=== PATIENT | female | born 1995 | race American Indian/Alaskan Native ===

== ENCOUNTER 2021-06-20 00:32 | Inpatient (IN) | payer SELFPAY ==
[2021-06-20 01:52] LABS: Bacteria,Urine 1+ /HPF (Negative); Bilirubin,Urine NEG (Negative); Blood,Urine SM (Negative); Color,Urine Straw (Yellow); Mucus,Urine FEW /HPF; Protein,Urine <15 mg/dL mg/dL (Negative); Urobilinogen,Urine < 2.0 mg/dL (<2.0)
[2021-06-20 02:07] LABS: Basophils % (Auto) 0.1 % (0.0-1.8); Hematocrit 45.3 % (30.3-42.9); Hemoglobin 14.4 gm/dl (10.1-14.3); Lymphocytes # (Auto) 0.8 K/mm3 (1.2-5.4); Lymphocytes % (Auto) 6.5 % (13.4-35.0); Mean Corpuscular HGB Conc 32 % (30-34); Mean Corpuscular Volume 90 fl (79-97); Monocytes # (Auto) 0.6 K/mm3 (0.0-0.8); Monocytes % (Auto) 4.6 % (0.0-7.3); Platelet Count 156 K/mm3 (140-440); Red Blood Count 5.03 M/mm3 (3.65-5.03)
[2021-06-20 02:11] LABS: Alanine Aminotransferase 72 units/L (7-56); Albumin 5.1 g/dL (3.9-5); Blood Urea Nitrogen 8 mg/dL (7-17); Calcium 9.4 mg/dL (8.4-10.2); Hemolysis Index 9
[2021-06-20 02:15] LABS: BUN/Creatinine Ratio 11
[2021-06-20] MEDS ORDERED: MORPHINE 4 MG/1 ML INJ IV ONE ×2 (04:08→06:36)
[2021-06-20] MEDS ORDERED: ONDANSETRON 4 MG/2 ML INJ IV ONE ×2 (04:08→06:36)
[2021-06-20] MEDS ORDERED: FAMOTIDINE 20 MG/2 ML INJ IV ONE (04:08)
[2021-06-20] MEDS ORDERED: SODIUM CHLORIDE 0.9% 1000 ML 1,000 ML IV ONE (04:08)
[2021-06-20] MEDS ORDERED: KETOROLAC 30 MG/1 ML INJ IV ONE (06:36)
--- NOTE | 2021-06-20 06:42 | Emergency Department Report ---
<ELVIN PINEDA - Last Filed: 06/20/21 06:37> ED N/V/D HPI - General Chief complaint: Nausea/Vomiting/Diarrhea Stated complaint: ABD PAIN/VOMITING Source: patient Mode of arrival: Ambulatory Limitations: No Limitations - History of Present Illness Initial comments: Patient is a 26-year-old -[place] female with no past medical history who presents to the ED with complaint of acute onset persistent intractable nausea and vomiting and diarrhea with diffuse abdominal pain for the last 12 hours. Patient states that the last meal she ate was over 24 hours ago and that was restaurant meal involving seafood. Patient states that she has not been ab le to keep anything down since the onset of the symptoms because of worsening nausea and vomiting. Patient denies dizziness, syncope, fever, chills, chest pain or shortness of breath, cough, hemoptysis, hematemesis, hematochezia, dysuria, urinary frequency and urgency or back pain., MD complaint: nausea, vomiting, diarrhea, abdominal pain -: Sudden, hour(s) (12) Description of Vomiting: food contents, watery, bilious Description of Diarrhea: water Associated Abdominal Pain: Yes (Diffuse) Location: diffuse Radiation: none Severity: moderate Pain Scale: 6 Quality: cramping, sharp Consistency: constant Improves with: none Worsens with: eating, vomiting Context: possible food poisoning, sick contacts Associated Symptoms: denies other symptoms, loss of appetite, malaise, nausea/vomiting. denies: myalgias, chest pain, cough, diaphoresis, fever/chills, headaches, rash, dysuria, shortness of breath, syncope, weakness, other - Related Data Allergies Allergy/AdvReac Type Severity Reaction Status Date / Time No Known Allergies Allergy Verified 06/20/21 01:07 ED Review of Systems Constitutional: denies: chills, fever Eyes: denies: eye pain, eye discharge, vision change ENT: denies: ear pain, throat pain Respiratory: denies: cough, shortness of breath, wheezing Cardiovascular: denies: chest pain, palpitations Endocrine: no symptoms reported Gastrointestinal: abdominal pain, nausea, vomiting, diarrhea Genitourinary: denies: urgency, dysuria, discharge Musculoskeletal: denies: back pain, joint swelling, arthralgia Skin: denies: rash, lesions Neurological: denies: headache, weakness, paresthesias Psychiatric: denies: anxiety, depression Hematological/Lymphatic: denies: easy bleeding, easy bruising ED Physical Exam - General Limitations: No Limitations General appearance: alert, in no apparent distress - Head Head exam: Present: atraumatic, normocephalic, normal inspection - Eye Eye exam: Present: normal appearance, PERRL, EOMI Pupils: Present: normal accommodation - ENT ENT exam: Present: normal exam, normal orophraynx, mucous membranes moist, TM's normal bilaterally, normal external ear exam - Neck Neck exam: Present: normal inspection, full ROM. Absent: tenderness - Respiratory Respiratory exam: Present: normal lung sounds bilaterally. Absent: respiratory distress, wheezes, rales, rhonchi, stridor, chest wall tenderness, accessory muscle use, decreased breath sounds, prolonged expiratory - Cardiovascular Cardiovascular Exam: Present: regular rate, normal rhythm, normal heart sounds. Absent: systolic murmur, diastolic murmur, rubs, gallop - GI/Abdominal GI/Abdominal exam: Present: soft, tenderness (Palpable diffuse abdominal tenderness), normal bowel sounds. Absent: guarding, rebound, hyperactive bowel sounds, hypoactive bowel sounds, organomegaly, mass - Bi-manual exam: Present: other (Pelvic exam deferred at this time) - Extremities Exam Extremities exam: Present: normal inspection, full ROM, normal capillary refill - Back Exam Back exam: Present: normal inspection, full ROM. Absent: tenderness, CVA tenderness (R), CVA tenderness (L), muscle spasm, paraspinal tenderness - Neurological Exam Neurological exam: Present: alert, oriented X3, CN II-XII intact, normal gait, reflexes normal - Psychiatric Psychiatric exam: Present: normal affect, normal mood - Skin Skin exam: Present: warm, dry, intact, normal color. Absent: rash ED Medical Decision Making - Lab Data Result diagrams: 06/20/21 01:24 06/20/21 01:24 - Medical Decision Making This is a 26-year-old -[place] female with no past medical history who presents to the ED with complaint of acute onset persistent intractable nausea and vomiting and diarrhea with diffuse abdominal pain for the last 12 hours. Patient states that the last meal she ate was over 24 hours ago and that was restaurant meal involving seafood. Patient states that she has not been able to keep anything down since the onset of the symptoms because of worsening nausea and vomiting. In the ED, patient is alert and oriented x3 and is not in any distress. Patient was treated in the ED for pain and also given antiemetics and normal saline 1 L IV bolus x1. Lab test results were reviewed and showed acute leukocytosis of 12,400, hyperglycemia of 125 mg/dL, AST level of 61 and ALT of 72. Urinalysis showed no acute urinary tract infection. The abdomen pelvis CT scan with IV contrast is pending. On reevaluation, patient nausea and vomiting as well as pain is well controlled medication. Patient care was transferred to Ms. Demetrice Yap TOWER CRANE OPERATOR at shift change. She shall review all lab test results, imaging reports and reevaluate the patient and make appropriate disposition. - Differential Diagnosis Pancreatitis; ED Disposition Clinical Impression: Appendicitis Qualifiers: Appendicitis type: acute appendicitis Acute appendicitis type: unspecified acute appendicitis type Qualified Code(s): K35.80 - Unspecified acute appendicitis Disposition: 01 HOME / SELF CARE / HOMELESS Is pt being admited?: No Does the pt Need Aspirin: No Condition: Stable <CLARISSA HYATT - Last Filed: 06/20/21 08:53> ED Review of Systems ROS: Stated complaint: ABD PAIN/VOMITING Other details as noted in HPI ED Course Vital Signs 06/20/21 00:39 Temperature 99.0 F Pulse Rate 73 Respiratory 18 Rate Blood Pressure 149/83 O2 Sat by Pulse 100 Oximetry ED Medical Decision Making - Lab Data Result diagrams: 06/20/21 01:24 06/20/21 01:24 - Radiology Data Radiology results: report reviewed CT abdomen and pelvis: 1. uncomplicated acute appendicitis - Medical Decision Making On reexam, patient noted to still have minimal pain 3-4 on 10 point scale but states that nausea vomiting is well controlled. CT scan positive for acute appendicitis. Spoke with Dr. Olivo, general surgeon who advised to admit patient to hospitalist service with plan to take to the OR later this evening. Spoke with hospitalist on-call, Dr. Garcia who agreed to admit for surgery. Adde d one-time dose of Zofran 2.5 mg IV. Plan of care reviewed with patient, all questions answered, and she verbalized understanding of and agreement with. Critical care attestation.: If time is entered above; I have spent that time in minutes in the direct care of this critically ill patient, excluding procedure time. ED Disposition Is pt being admited?: Yes Does the pt Need Aspirin: No
--- NOTE | 2021-06-20 08:05 | Cat Scan Report ---
CT ABDOMEN AND PELVIS WITH CONTRAST INDICATION / CLINICAL INFORMATION: Abdominal pain, mid upper abdomen pain w nausea and vomiting X1day per patient. TECHNIQUE: Axial CT images were obtained through the abdomen and pelvis after 100 cc Omnipaque [address] scans at this location are performed using CT dose reduction for ALARA by means of automated exposure control. COMPARISON: None available. FINDINGS: LOWER CHEST: No significant abnormality. LIVER: No significant abnormality. GALLBLADDER: No significant abnormality. BILE DUCTS: No significant abnormality. PANCREAS: No significant abnormality. SPLEEN: No significant abnormality. ADRENALS: No significant abnormality. RIGHT KIDNEY/URETER: No significant abnormality. LEFT KIDNEY/URETER: No significant abnormality. STOMACH/SMALL BOWEL: No significant abnormality. COLON: In general, the colon is collapsed with mild generalized thickening likely related to underdis tention. No other acute findings. APPENDIX: The appendix is fluid-filled, dilated and mildly thickened, measuring 14 mm in short axis d imension on image 90 of series 2. There is mild surrounding periappendiceal inflammation. PERITONEUM: No free fluid. No free air. No fluid collection. LYMPH NODES: No significant adenopathy. VASCULATURE: No significant abnormality. URINARY BLADDER: No significant abnormality. REPRODUCTIVE ORGANS: No significant abnormality. ADDITIONAL FINDINGS: None. BONES: No significant abnormality IMPRESSION: 1. Uncomplicated acute appendicitis. 2. Additional findings as above. Signer Name: Robi Vela MD Signed: 06/20/2021 8:01 AM Workstation Name: [id number]
[2021-06-20] MEDS ORDERED: MORPHINE 2 MG/1 ML INJ IV PRN (08:49)
[2021-06-20] MEDS ORDERED: ACETAMINOPHEN 325 MG TAB PO PRN (08:49)
[2021-06-20] MEDS ORDERED: ONDANSETRON 4 MG/2 ML INJ IV PRN (08:49)
[2021-06-20] MEDS ORDERED: HYDROmorphone 1 MG/1 ML INJ IV PRN ×2 (08:49→17:59)
[2021-06-20] MEDS ORDERED: PIPERACIL/TAZOBACTA 4.5/NS 100 4.5 GM/100 ML VIAL IV ONE (08:52)
--- NOTE | 2021-06-20 08:55 | Consultation ---
History of Present Illness Consult date: 06/20/21 Reason for consult: abdominal pain Chief complaint: ABD PAIN - History of present illness History of present illness: 26 yo F with no PMHx who presents to ER with c/o abdominal pain, n/v since 2 days ago. States she ate crab and felt fine. She ate the leftovers and then started to have RLQ abd pain. The pain is sharp and radiates towards the right upper abdomen. No alleviating or exacerbating factors. +nausea and nonbloody/nonbilious emesis. + diarrhea. She has never had pain like this in the past. No f/c. No cp, sob. Past History Past Medical History: No medical history Past Surgical History: No surgical history Social history: smoking (marijuana daily), alcohol abuse (socail) Family history: hypertension (mother) Medications and Allergies Allergies Allergy/AdvReac Type Severity Reaction Status Date / Time No Known Allergies Allergy Verified 06/20/21 01:07 Active Meds: Active Medications Acetaminophen (Acetaminophen 325 Mg Tab) 650 mg PO Q4H PRN PRN Reason: Pain MILD(1-3)/Fever >100.5/SINGH Heparin Sodium (Porcine) (Heparin 5,000 Unit/1 Ml Vial) 5,000 unit SUB-Q Q8H NIKITA Hydromorphone HCl (Hydromorphone 1 Mg/1 Ml Inj) 1 mg IV Q4H PRN PRN Reason: Pain , Severe (7-10) Piperacillin Sod/Tazobactam Sod (Zosyn/Ns 4.5gm/100ml) 4.5 gm in 100 mls @ 200 mls/hr IV ONCE ONE; Protocol Stop: 06/20/21 09:21 Dextrose (D5w) 1,000 mls @ 75 mls/hr IV DIRECT NIKITA Ceftriaxone Sodium (Rocephin/Ns 1 Gm/50 Ml) 1 gm in 50 mls @ 100 mls/hr IV Q24H NIKITA; Protocol Stop: 06/23/21 08:59 Morphine Sulfate (Morphine 2 Mg/1 Ml Inj) 2 mg IV Q4H PRN PRN Reason: Pain, Moderate (4-6) Ondansetron HCl (Ondansetron 4 Mg/2 Ml Inj) 4 mg IV Q8H PRN PRN Reason: Nausea And Vomiting Sodium Chloride (Sodium Chloride 0.9% 10 Ml Flush Syringe) 10 ml IV BID NIKITA Sodium Chloride (Sodium Chloride 0.9% 10 Ml Flush Syringe) 10 ml IV PRN PRN PRN Reason: LINE FLUSH Review of Systems All systems: negative (10 pt ROS performed and negative except for that listed in HPI) Exam Vital Signs Temp Pulse Resp BP Pulse Ox 99.0 F 73 18 149/83 100 06/20/21 00:39 06/20/21 00:39 06/20/21 00:39 06/20/21 00:39 06/20/21 00:39 Narrative exam: Gen: AAOx3. NAD ENT: no scleral icterus or conjunctival pallor CV: s1, S2+ Resp: even and unlabored Abd: soft, ND, + TTP (mild) in RLQ, RUQ. No r/r/g Ext: no c/c/e Results - Labs 06/20/21 01:24 06/20/21 01:24 Abnormal lab results 06/20/21 06/20/21 06/20/21 Range/Units 01:24 01:24 Unknown WBC 12.7 H (4.5-11.0) K/mm3 Hgb 14.4 H (10.1-14.3) gm/dl Hct 45.3 H (30.3-42.9) % Lymph % (Auto) 6.5 L (13.4-35.0) % Lymph # (Auto) 0.8 L (1.2-5.4) K/mm3 Seg Neutrophils % 88.8 H (40.0-70.0) % Seg Neutrophils # 11.3 H (1.8-7.7) K/mm3 Glucose 125 H (65-100) mg/dL AST 61 H (5-40) units/L ALT 72 H (7-56) units/L Albumin 5.1 H (3.9-5) g/dL Urine WBC (Auto) 9.0 H (0.0-6.0) /HPF Diabetes panel 06/20/21 Range/Units 01:24 Sodium 140 (137-145) mmol/L Potassium 4.3 (3.6-5.0) mmol/L Chloride 101.2 (98-107) mmol/L Carbon Dioxide 23 (22-30) mmol/L BUN 8 (7-17) mg/dL Creatinine 0.7 (0.6-1.2) mg/dL Glucose 125 H (65-100) mg/dL Calcium 9.4 (8.4-10.2) mg/dL AST 61 H (5-40) units/L ALT 72 H (7-56) units/L Alkaline Phosphatase 122 (35-129) units/L Total Protein 7.4 (6.3-8.2) g/dL Albumin 5.1 H (3.9-5) g/dL Calcium panel 06/20/21 Range/Units 01:24 Calcium 9.4 (8.4-10.2) mg/dL Albumin 5.1 H (3.9-5) g/dL Pituitary panel 06/20/21 Range/Units 01:24 Sodium 140 (137-145) mmol/L Potassium 4.3 (3.6-5.0) mmol/L Chloride 101.2 (98-107) mmol/L Carbon Dioxide 23 (22-30) mmol/L BUN 8 (7-17) mg/dL Creatinine 0.7 (0.6-1.2) mg/dL Glucose 125 H (65-100) mg/dL Calcium 9.4 (8.4-10.2) mg/dL Adrenal panel 06/20/21 Range/Units 01:24 Sodium 140 (137-145) mmol/L Potassium 4.3 (3.6-5.0) mmol/L Chloride 101.2 (98-107) mmol/L Carbon Dioxide 23 (22-30) mmol/L BUN 8 (7-17) mg/dL Creatinine 0.7 (0.6-1.2) mg/dL Glucose 125 H (65-100) mg/dL Calcium 9.4 (8.4-10.2) mg/dL Total Bilirubin 0.40 (0.1-1.2) mg/dL AST 61 H (5-40) units/L ALT 72 H (7-56) units/L Alkaline Phosphatase 122 (35-129) units/L Total Protein 7.4 (6.3-8.2) g/dL Albumin 5.1 H (3.9-5) g/dL - Imaging CT scan - abdomen: report reviewed, image reviewed CT scan - pelvis: report reviewed, image reviewed Assessment and Plan 26 yo F with acute appendicitis Plan: 1. Admit to hospitalist service 2. NPO 3. IVF 4. IV abx - zosyn 5. prn pain and nausea control 6. DVt ppx 7. Recommend appendectomy. Discussed indication for surgery, along with risks, benefits, alternatives. Patient agreeable to proceed and consent obtained. Pt added on to OR schedule for today. Patient's mother at bedside. Plan discussed. Thank you, please call with questions.
[2021-06-20] MEDS ORDERED: HEPARIN 5,000 UNIT/1 ML VIAL SUB-Q SCH (09:00)
[2021-06-20] MEDS ORDERED: cefTRIAXone/NS 1 GM/50 ML 1 GM/50 ML BAG IV SCH ×2 (09:00→12:00)
[2021-06-20] MEDS ORDERED: DEXTROSE 5% IN WATER 1,000 ML IV SCH (09:00)
--- NOTE | 2021-06-20 11:12 | History and Physical Report ---
History of Present Illness Date of examination: 06/20/21 Date of admission: 06/20/21 08:49 Chief complaint: Abdominal pain History of present illness: Patient is a 26-year-old female with no significant past medical history who presents with 3 days of worsening abdominal pain after having Ju[employer]ab seafood on Sunday (06/17/2021) that progressed into nausea, vomiting, and nonbloody diarrhea. The patient denies having symptoms of this consistency before. Patient denies any fevers, chills, sick contacts, or exposure to new foods. The patient has been unable to tolerate p.o. intake since 06/19/2021. The patient was urged by her mother to present to the ED. On presentation, she was found to be hemodynamically stable with a mild elevation in her white count of 12.7. Further labs revealed an elevation in her transaminases (AST 61, ALT 72). CT abdomen and pelvis with contrast was performed revealing acute uncomplicated appendicitis. General surgery was consulted, and they recommended laparoscopic appendectomy to be performed later on today. Patient is being admitted for management of acute uncomplicated appendicitis. Past History Past Medical History: No medical history Past Surgical History: No surgical history Social history: single, full code Family history: no significant family history Medications and Allergies Allergies Allergy/AdvReac Type Severity Reaction Status Date / Time No Known Allergies Allergy Verified 06/20/21 01:07 Active Meds: Active Medications Acetaminophen (Acetaminophen 325 Mg Tab) 650 mg PO Q4H PRN PRN Reason: Pain MILD(1-3)/Fever >100.5/SINGH Heparin Sodium (Porcine) (Heparin 5,000 Unit/1 Ml Vial) 5,000 unit SUB-Q Q8H NIKITA Hydromorphone HCl (Hydromorphone 1 Mg/1 Ml Inj) 1 mg IV Q4H PRN PRN Reason: Pain , Severe (7-10) Dextrose (D5w) 1,000 mls @ 75 mls/hr IV DIRECT NIKITA Morphine Sulfate (Morphine 2 Mg/1 Ml Inj) 2 mg IV Q4H PRN PRN Reason: Pain, Moderate (4-6) Ondansetron HCl (Ondansetron 4 Mg/2 Ml Inj) 4 mg IV Q8H PRN PRN Reason: Nausea And Vomiting Sodium Chloride (Sodium Chloride 0.9% 10 Ml Flush Syringe) 10 ml IV BID NIKITA Sodium Chloride (Sodium Chloride 0.9% 10 Ml Flush Syringe) 10 ml IV PRN PRN PRN Reason: LINE FLUSH Review of Systems All systems: negative Gastrointestinal: abdominal pain, nausea, vomiting, diarrhea Exam - Constitutional Vitals: Temp Pulse Resp BP Pulse Ox 99.0 F 73 18 149/83 100 06/20/21 00:39 06/20/21 00:39 06/20/21 00:39 06/20/21 00:39 06/20/21 00:39 General appearance: Present: no acute distress, well-nourished, obese - EENT Eyes: Present: PERRL, EOM intact ENT: hearing intact, clear oral mucosa, dentition normal - Neck Neck: Present: supple, normal ROM - Respiratory Respiratory effort: normal Respiratory: bilateral: CTA - Cardiovascular Rhythm: regular Heart Sounds: Present: S1 & S2 - Extremities Extremities: no ischemia, pulses intact, pulses symmetrical, No edema, normal temperature, normal color, Full ROM Peripheral Pulses: within normal limits - Abdominal General gastrointestinal: Present: soft, tender, non-distended, normal bowel sounds Localized gastrointestinal: tender: RLQ Female genitourinary: Present: deferred - Rectal Rectal Exam: deferred - Integumentary Integumentary: Present: clear, warm, dry - Musculoskeletal Musculoskeletal: strength equal bilaterally - Psychiatric Psychiatric: appropriate mood/affect, intact judgment & insight, memory intact, cooperative - Neurologic Neurologic: CNII-XII intact, moves all extremities - Allied Health Allied health notes reviewed: nursing Results - Labs CBC & Chem 7: 06/20/21 01:24 06/20/21 01:24 Labs: Laboratory Last Values WBC 12.7 K/mm3 (4.5-11.0) H 06/20/21 01:24 RBC 5.03 M/mm3 (3.65-5.03) 06/20/21 01:24 Hgb 14.4 gm/dl (10.1-14.3) H 06/20/21 01:24 Hct 45.3 % (30.3-42.9) H 06/20/21 01:24 MCV 90 fl (79-97) 06/20/21 01:24 MCH 29 pg (28-32) 06/20/21 01:24 MCHC 32 % (30-34) 06/20/21 01:24 RDW 14.0 % (13.2-15.2) 06/20/21 01:24 Plt Count 156 K/mm3 (140-440) 06/20/21 01:24 Lymph % (Auto) 6.5 % (13.4-35.0) L 06/20/21 01:24 [place] % (Auto) 4.6 % (0.0-7.3) 06/20/21 01:24 Eos % (Auto) 0.0 % (0.0-4.3) 06/20/21 01:24 Baso % (Auto) 0.1 % (0.0-1.8) 06/20/21 01:24 Lymph # (Auto) 0.8 K/mm3 (1.2-5.4) L 06/20/21 01:24 [place] # (Auto) 0.6 K/mm3 (0.0-0.8) 06/20/21 01:24 Eos # (Auto) 0.0 K/mm3 (0.0-0.4) 06/20/21 01:24 Baso # (Auto) 0.0 K/mm3 (0.0-0.1) 06/20/21 01:24 Seg Neutrophils % 88.8 % (40.0-70.0) H 06/20/21 01:24 Seg Neutrophils # 11.3 K/mm3 (1.8-7.7) H 06/20/21 01:24 Sodium 140 mmol/L (137-145) 06/20/21 01:24 Potassium 4.3 mmol/L (3.6-5.0) 06/20/21 01:24 Chloride 101.2 mmol/L (98-107) 06/20/21 01:24 Carbon Dioxide 23 mmol/L (22-30) 06/20/21 01:24 Anion Gap 20 mmol/L 06/20/21 01:24 BUN 8 mg/dL (7-17) 06/20/21 01:24 Creatinine 0.7 mg/dL (0.6-1.2) 06/20/21 01:24 Estimated GFR > 60 ml/min 06/20/21 01:24 BUN/Creatinine Ratio 11 % 06/20/21 01:24 Glucose 125 mg/dL (65-100) H 06/20/21 01:24 Calcium 9.4 mg/dL (8.4-10.2) 06/20/21 01:24 Total Bilirubin 0.40 mg/dL (0.1-1.2) 06/20/21 01:24 AST 61 units/L (5-40) H 06/20/21 01:24 ALT 72 units/L (7-56) H 06/20/21 01:24 Alkaline Phosphatase 122 units/L (35-129) 06/20/21 01:24 Total Protein 7.4 g/dL (6.3-8.2) 06/20/21 01:24 Albumin 5.1 g/dL (3.9-5) H 06/20/21 01:24 Albumin/Globulin Ratio 2.2 % 06/20/21 01:24 HCG, Qual Negative (Negative) 06/20/21 01:24 Urine Color Straw (Yellow) 06/20/21 Unknown Urine Turbidity Clear (Clear) 06/20/21 Unknown Urine pH 6.0 (5.0-7.0) 06/20/21 Unknown Ur Specific [place] 1.004 (1.003-1.030) 06/20/21 Unknown Urine Protein <15 mg/dl mg/dL (Negative) 06/20/21 Unknown Urine Glucose (UA) Neg mg/dL (Negative) 06/20/21 Unknown Urine Ketones Neg mg/dL (Negative) 06/20/21 Unknown Urine Blood Sm (Negative) 06/20/21 Unknown Urine Nitrite Neg (Negative) 06/20/21 Unknown Urine Bilirubin Neg (Negative) 06/20/21 Unknown Urine Urobilinogen < 2.0 mg/dL (<2.0) 06/20/21 Unknown Ur Leukocyte Esterase Sm (Negative) 06/20/21 Unknown Urine WBC (Auto) 9.0 /HPF (0.0-6.0) H 06/20/21 Unknown Urine RBC (Auto) 3.0 /HPF (0.0-6.0) 06/20/21 Unknown U Epithel Cells (Auto) 13.0 /HPF (0-13.0) 06/20/21 Unknown Urine Bacteria (Auto) 1+ /HPF (Negative) 06/20/21 Unknown Urine Mucus Few /HPF 06/20/21 Unknown Assessment and Plan Assessment and plan: #Acute uncomplicated appendicitis #Leukocytosis WBC 12.7 CT abdomen and pelvis revealing acute uncomplicated appendicitis General surgery consulted; pending recs. Planning for patient to undergo laparoscopic appendectomy later on today. Continue n.p.o. status and IV analgesics as needed Continue D5W at 75 cc/hour and Zosyn 4.5 g every 6 hours Continue to monitor #Elevated transaminases AST 61, ALT 72 Likely secondary to inflammatory process of uncomplicated appendicitis. Continue to monitor with repeat labs. #Asymptomatic bacteriuria Urinalysis revealing small leukocyte esterase, WBC 9, 1+ bacteria Incidentally being treated with Zosyn 4.5 g every 6 hours #Elevated blood pressure Blood pressure 149/83 Possibly secondary to pain in the setting of acute appendicitis. Continue to monitor. #Morbid obesity #Weight loss counseling #Exercise counseling - BMI 36.0 - Counseled patient on the importance of weight loss, incorporating exercise, and dietary changes (lean meats, fresh fruits and vegetables, and water intake). Patient expresses understanding. - Time: +15 min #Advanced care planning -Disease education conducted, care plan discussed, diagnoses discussed, progn osis discussed, and patient acknowledges understanding with care plan -Time: +30 min Advance Directives: No VTE prophylaxis?: Chemical Plan of care discussed with patient/family: Yes
[2021-06-20] MEDS ORDERED: SODIUM CHLORIDE 0.9% 1000 ML 1,000 ML ONE (12:35)
[2021-06-20] MEDS: PIPERACIL/TAZOBACTA 4.5/NS 100 4.5 GM/100 ML VIAL IV SCH ×3 (14:26→23:18)
--- NOTE | 2021-06-20 14:31 | Anesthesia Consultation ---
<ROSALINDA CARBAJAL - Last Filed: 06/20/21 14:27> Anesthesia Consult and Med Hx Date of service: 06/20/21 - Airway Anesthetic Teeth Evaluation: Good ROM Head & Neck: Adequate Mental/Hyoid Distance: Adequate Mallampati Class: Class I Intubation Access Assessment: Probably Good - Pulmonary Exam CTA: Yes - Cardiac Exam Cardiac Exam: RRR - Pre-Operative Health Status ASA Pre-Surgery Classification: ASA2, Emergency Proposed Anesthetic Plan: General - Pulmonary Hx Smoking: Yes (THC 5 days/week; last use 1 weeek ago) Hx Asthma: No Hx Respiratory Symptoms: No SOB: No COPD: No Home Oxygen Therapy: No Hx Pneumonia: No Hx Sleep Apnea: No - Cardiovascular System Hx Hypertension: No Hx Coronary Artery Disease: No Hx Heart Attack/AMI: No Hx Angina: No Hx Percutaneous Transluminal Coronary Angioplasty (PTCA): No Hx Cardia Arrhythmia: No Hx Pacemaker: No Hx Internal Defibrillator: No Hx Valvular Heart Disease: No Hx Heart Murmur: No Hx Peripheral Vascular Disease: No - Central Nervous System Hx Neuromuscular Disorder: No Hx Seizures: No CVA: No Hx Back Pain: No Hx Psychiatric Problems: No - Gastrointestinal Hx Ulcer: No Hx Gastroesophageal Reflux Disease: No - Endocrine Hx Renal Disease: No Hx End Stage Renal Disease: No Hx Cirrhosis: No Hx Liver Disease: No Hx Insulin Dependent Diabetes: No Hx Non-Insulin Dependent Diabetes: No Hx Thyroid Disease: No Hx Hypothyroidism: No Hx Hyperthyroidism: No - Hematic Hx Anemia: No Hx Sickle Cell Disease: No - Other Systems Hx Alcohol Use: No Hx Substance Use: No Hx Cancer: No Hx Obesity: No - Additional Comments Anesthesia Medical History Comments: piercings need to be removed from nose and ears; <LARISSA TRISTAN - Last Filed: 06/20/21 17:59> Anesthesia Consult and Med Hx - Airway Anesthetic Teeth Evaluation: Good Mallampati Class: Class I Intubation Access Assessment: Probably Good - Pre-Operative Health Status ASA Pre-Surgery Classification: ASA2 Proposed Anesthetic Plan: General - Pulmonary Hx Smoking: Yes
[2021-06-20] MEDS ORDERED: BUPIVACAINE/PF (0.5%) 5 MG/1 ML 30 ML VIAL INFILTRATI ONE ×2 (15:40→16:32)
[2021-06-20] MEDS ORDERED: LIDOCAINE (1%) 10 MG/1 ML VIAL 20 ML MDV ONE (15:40)
[2021-06-20] MEDS ORDERED: HYDROmorphone 1 MG/1 ML INJ ONE (15:52)
[2021-06-20] MEDS ORDERED: ONDANSETRON 4 MG/2 ML INJ ONE (15:52)
[2021-06-20] MEDS ORDERED: LIDOCAINE MPF (2%) 20 MG/1 ML VIAL 5 ML ONE (15:52)
[2021-06-20] MEDS ORDERED: ROCURONIUM 50 MG/5 ML INJ IV ONE (15:52)
[2021-06-20] MEDS ORDERED: propofoL 200 MG/20 ML VIAL IV ONE (15:53)
[2021-06-20] MEDS ORDERED: LIDOCAINE (1%) 10 MG/1 ML VIAL 20 ML MDV INFILTRATI ONE (16:32)
[2021-06-20] MEDS ORDERED: SODIUM CHLORIDE 0.9% IRR 1,500 ML BOTTLE IR ONE (16:32)
[2021-06-20] MEDS ORDERED: LACTATED RINGERS 2,000 ML ONE (17:15)
[2021-06-20] MEDS ORDERED: dexAMETHasone 20 MG/5 ML VIAL ONE (17:16)
[2021-06-20] MEDS ORDERED: NEOSTIGMINE 10MG/10 ML INJ MDV ONE (17:16)
[2021-06-20] MEDS ORDERED: GLYCOPYRROLATE 0.4 MG/2 ML INJ ONE (17:16)
[2021-06-20] MEDS ORDERED: HYDROcodone/ACETAMINOPHEN 5-325 MG TAB PO PRN (17:33)
--- NOTE | 2021-06-20 17:33 | Operative Report ---
Operative Report Operative Report: Date of operation: 06/20/21 Preoperative diagnosis: acute appendicitis Postoperative diagnosis: acute appendicitis Procedure performed: Laparoscopic appendectomy Surgeon: Jose Olivo DO Anesthesia: GETA, LOCAL Findings: Thickened and inflamed appendix with dense adhesions to small bowel mesentery (TI). EBL:25cc Specimen: appendix Disposition/Condition: stable to PACU HPI and indication: 26 yo F who presented to ER with RLQ pain, n/v x2 days. She was found to have an elevated WBC and acute appendicitis on CT scan. Appendectomy was recommended. All risks, benefits, alternatives to surgery were discussed with the patient questions answered. Consent was obtained. Procedure in detail: Patient was identified in the preop area and taken back to the OR and placed on the OR table in supine position. After anesthesia was induced a lutz catheter was steriley placed by the circulating nurse. The left arm was tucked and all bony prominences padded appropriately. the abdomen was prepped and draped in the usual sterile fashion and a timeout performed. Local anesthetic was infilitrated into all skin incision sites. A supraumbilical incision was made and veress needle inserted. The positioning of the veress needle was confirmed using the saline drop test and the abdomen insufflated to 15 mmHg without incident. The Veress needle was then removed and a 5mm Optiview trocar was placed through the supraumbilical incision. The abdomen was inspected and no underlying injury to the abdominal structures was identified. The patient was placed in Trendelenburg and tilted to the left. A 12 mm LLQ trocar and 5 mm suprapubic trocar were placed under direct visualization. The appendix was identified. The majority of the appendix appeared dilated, thickened, inflamed. The tip of the appendix was traced towards the base. The cecum was identified. The mid body of the appendix was densely adhered to the mesentery of the small bowel at the terminal ileum. The base of the appendix was identified and appeared normal. I performed lysis of adhesions using a harmonic scalpel and blunt dissection. This was done very meticulously in order to avoid injury to the small bowel mesentery. I then ligated the mesentery of the appendix using the harmonic scalpel. The base of the appendix was transected using an ethicon flex stapler 45mm white load. The appendix was placed into an endocatch bag and removed via the 12 mm port. This was passed off the table as specimen. The staple line and mesentery were then inspected and no bleeding visualized. The patient was placed in neutral position. The 12 mm port fascia was closed with a single interrupted 0 vicryl stitch using the Sumeet Gonzalez device. The remaining ports were removed under direct visualization and the abdomen desufflated. All skin incisions were closed using 4-0 monocryl subcuticular stitches and skin glue. Local anesthetic was once again infiltrated into all skin incision sites. At the end of the case, all sponge, instrument, sharp counts were correct x2. The patient was awoken from anesthesia, lutz catheter removed, and she was taken to PACU in stable condition. Patient's mother/NOK was updated.
--- NOTE | 2021-06-20 17:59 | Anesthesia Day of Surgery ---
Anesthesia Day of Surgery - Day of Surgery Patient Examined: Yes Patient H&P Reviewed: Yes Patient is NPO: Yes
[2021-06-20] MEDS: KETOROLAC 30 MG/1 ML INJ IV SCH (18:06)
--- NOTE | 2021-06-20 18:46 | Post Anesthesia Evaluation ---
- Post Anesthesia Evaluation Patient Participated: Yes Airway Patent: Yes Stable Respiratory Function: Yes Nausea/Vomiting: No Temp > 96.8F: Yes Pain Manageable: Yes Adequeate Hydration: Yes Anesthesia Complications: No
[2021-06-21] MEDS: KETOROLAC 30 MG/1 ML INJ IV SCH ×2 (01:44→10:22)
[2021-06-21] MEDS: PIPERACIL/TAZOBACTA 4.5/NS 100 4.5 GM/100 ML VIAL IV SCH (05:42)
[2021-06-21 07:41] VITALS: BP 142/78
[2021-06-21] MEDS ORDERED: HEPARIN 5,000 UNIT/1 ML VIAL SUB-Q SCH (09:00)
--- NOTE | 2021-06-21 10:14 | Progress Note ---
Assessment and Plan 26 yo F s/p laparoscopic appendectomy, POD 1 Plan: 1. reg diet 2. dc IVF 3. prn pain control 4. OOB/ambulate 5. IS/pulm toilet 6. OK to dc home - patient given written instructions and advised to call office to make 2 week follow up appt. D/W Dr. Borrero Thank you, please call with questions Subjective Date of service: 06/21/21 Narrative: Pt seen and examined. No acute complaints. Denise diet. Pain well controlled. No n/v. Mild diarrhea Objective Vital Signs - 12hr 06/21/21 06/21/21 06/21/21 00:02 06:24 07:55 Temperature 98.2 F 98.4 F Pulse Rate 83 64 Respiratory 18 18 Rate Blood Pressure 118/62 142/78 O2 Sat by Pulse 100 100 96 Oximetry - General physical appearance Narrative Exam: Gen.: Awake, alert, oriented x3. No apparent distress ENT: Trachea midline. No lymphadenopathy. No scleral icterus or conjunctival pallor CV: S1, S2 present Respiratory: No audible wheezes Abdomen: Soft, nondistended, nontender. Incisions c/d/i. No rebound, rigidity, guarding Extremities: No clubbing, cyanosis, edema - Labs 06/20/21 01:24 06/20/21 01:24
--- NOTE | 2021-06-21 10:53 | Discharge Summary ---
Providers - Providers Date of Admission: 06/20/21 08:49 Date of discharge: 06/21/21 Attending physician: MARYAN PRAKASH 06/20/21 08:49 Consult to Physician [CONS] Routine Comment: Consulting Provider: DAMI CLEMENTE Physician Instructions: Reason For Exam: Acute uncomplicated appendicitis Primary care physician: CARMEL BRANDON Hospitalization Reason for admission: Appendicitis Condition: Stable Hospital course: Patient is a 26-year-old female with no significant past medical history who presents with 3 days of worsening abdominal pain after having [employer] seafood on Sunday (06/17/2021) that progressed into nausea, vomiting, and nonbloody diarrhea. The patient denies having symptoms of this consistency before. Patient denied any fevers, chills, sick contacts, or exposure to new foods. The patient was unable to tolerate p.o. intake since 06/19/2021. The patient was urged by her mother to present to the ED. On presentation, she was found to be hemodynamically stable with a mild elevation in her white count of 12.7. Further labs revealed an elevation in her transaminases (AST 61, ALT 72). CT abdomen and pelvis with contrast was performed revealing acute uncomplicated appendicitis. General surgery was consulted, and they recommended laparoscopic appendectomy to be performed later on today. Patient was admitted for management of acute uncomplicated appendicitis. Shortly after admission, patient underwent laparoscopic appendectomy and tolerated procedure well. Patient later tolerated her diet and IV fluids were discontinued. Surgery felt patient could discharge home and was given a prescription for pain medication. Patient is to follow-up with surgery in 2 weeks. Dedicated discharge time 32 minutes. Disposition: 01 HOME / SELF CARE / HOMELESS Final Discharge Diagnosis (Prints w/discharge instructions): Acute appendicitis s/p appendectomy Core Measure Documentation - Palliative Care Palliative Care/ Comfort Measures: Not Applicable - Core Measures Any of the following diagnoses?: none Exam - Constitutional Vitals: Temp Pulse Resp BP Pulse Ox 98.4 F 64 18 142/78 96 06/21/21 06:24 06/21/21 06:24 06/21/21 06:24 06/21/21 06:24 06/21/21 07:55 General appearance: Present: no acute distress, well-nourished - EENT Eyes: Present: PERRL ENT: hearing intact, clear oral mucosa - Neck Neck: Present: supple, normal ROM - Respiratory Respiratory effort: normal Respiratory: bilateral: CTA - Cardiovascular Heart Sounds: Present: S1 & S2. Absent: rub, click - Extremities Extremities: pulses symmetrical, No edema Peripheral Pulses: within normal limits - Abdominal General gastrointestinal: Present: soft, non-tender, non-distended, normal bowel sounds Female genitourinary: Present: normal - Integumentary Integumentary: Present: clear, warm, dry - Musculoskeletal Musculoskeletal: gait normal, strength equal bilaterally - Psychiatric Psychiatric: appropriate mood/affect, intact judgment & insight - Neurologic Neurologic: CNII-XII intact, moves all extremities Plan Activity: advance as tolerated Weight Bearing Status: Weight Bear as Tolerated Diet: regular Wound: per your surgeon's advice Follow up with: CARMEL BRANDON MD [Primary Care Provider] - 7 Days DAMI CLEMENTE DO [Staff Physician] - 14 Days Forms: Work/School Release Form Prescriptions: HYDROcodone/APAP 5-325 [Marcella 5-325 mg TAB] 1 each PO Q4H PRN #15 tablet PRN Reason: Pain, Moderate (4-6)
[2021-06-21 10:54] LABS: Basophils % (Auto) 0.1 % (0.0-1.8); Hematocrit 37.2 % (30.3-42.9); Hemoglobin 12.3 gm/dl (10.1-14.3); Lymphocytes # (Auto) 1.2 K/mm3 (1.2-5.4); Lymphocytes % (Auto) 7.7 % (13.4-35.0); Mean Corpuscular HGB Conc 33 % (30-34); Mean Corpuscular Volume 89 fl (79-97); Platelet Count 152 K/mm3 (140-440); Red Cell Distribution Width 14.3 % (13.2-15.2)
[2021-06-21 11:08] LABS: Alanine Aminotransferase 65 units/L (7-56); Albumin 3.7 g/dL (3.9-5); BUN/Creatinine Ratio 9; Blood Urea Nitrogen 7 mg/dL (7-17); Calcium 8.6 mg/dL (8.4-10.2); Hemolysis Index 5
== END 2021-06-21 12:45 | disposition home or self-care (01) | DRG 343 ==
LOC: ED 00:32 → 3A 08:49
PROVIDERS: ADMIT Student in an Organized Health Care Education/Training Program; ATTEND Hospitalist
PROC: 0DTJ4ZZ Resection of Appendix, Percutaneous Endoscopic Approach (ICD-10-PCS; principal; 2021-06-20)
DX: K35.80 Unspecified acute appendicitis (principal); R82.71 Bacteriuria; R74.8 Abnormal levels of other serum enzymes; D72.829 Elevated white blood cell count, unspecified; E66.01 Morbid (severe) obesity due to excess calories; Z82.49 Family history of ischemic heart disease and other diseases of the circulatory system
CPT/HCPCS: 36415; 74177; 80053; 81001; 84703; 85025; 87086; 88304; 96374; 96375; 96376; 99285; G0378; J1815; J3490; J1100; J1170; J1644; J1885; J2270; J2405; J2543; J2704; J2710; J7030; J7070; J7120; Q9967